=== PATIENT | female | born 1955 | race Caucasian/White ===

== ENCOUNTER 2021-05-28 11:43 | Emergency (ER) | payer MEDICARE, MEDICAID ==
[~2021-05-28] VITALS: Ht 154.9 cm; Wt 88.9 kg
[2021-05-28 11:56] VITALS: BP 144/85
== END 2021-05-28 16:10 | disposition left against medical advice (07) ==
LOC: ER 11:44
DX: R22.40 Localized swelling, mass and lump, unspecified lower limb (principal); Z53.21 Procedure and treatment not carried out due to patient leaving prior to being seen by health care provider

== ENCOUNTER 2022-08-02 08:31 | Day surgery (SDC) | payer MEDICARE, MEDICAID ==
[2022-07-31 12:08] LABS: CLARITY,URINE CLOUDY (Clear); GLUCOSE, URINE NEGATIVE (Neg); KETONES,URINE NEGATIVE (Neg); LEUKOCYTE ESTERASE ,URINE LARGE (Neg); NITRITES, URINE POSITIVE (Neg); OCCULT BLOOD,URINE TRACE-INTACT (Neg); PH,URINE 7.5 (4.8-8.0); PROTEIN,URINE NEGATIVE (Neg); UROBILINOGEN,URINE 0.2 E.U/dL (0.2-1.0)
[2022-07-31 12:12] LABS: UA COLLECTION TYPE CLN CATCH MIDSTREAM
[2022-07-31 12:13] LABS: COLOR,URINE STRAW (Yellow)
[2022-07-31 12:14] LABS: BASOPHILS # (AUTO) 0.1 X10'3 (0-0.2); BASOPHILS % (AUTO) 1.1 % (0-1); EOSINOPHILS # (AUTO) 0.2 X10'3 (0-0.9); LYMPHOCYTES # (AUTO) 1.2 X10'3 (1.1-4.8); MEAN CORPUSCULAR VOLUME 97.1 FL (78-98); MEAN PLATELET VOLUME 8.5 FL (7.4-10.4); MONOCYTES # (AUTO) 0.5 X10'3 (0-0.9); MONOCYTES % (AUTO) 10.4 % (2-12); NEUTROPHILS # (AUTO) 2.9 X10'3 (1.8-7.7); NEUTROPHILS % (AUTO) 59.5 % (42-75); PRE OP HEMATOCRIT 37.7 % (35.0-45.0); PRE OP HEMOGLOBIN 12.8 g/dL (12.0-16.0); PRE OP PLATELET COUNT 247 X10'3 (140-440); RED BLOOD COUNT 3.89 X10'6 (4.20-5.60); SQUAMOUS EPITHELIAL CELL,UR FEW /LPF (FEW); WBC CLUMPS,URINE MODERATE /HPF (NEGATIVE)
[2022-07-31 12:15] LABS: BACTERIA,URINE 1+ /HPF (Neg); RBC,URINE 0-2 /HPF (0-2)
[2022-07-31 12:25] LABS: ALBUMIN 4.1 G/DL (3.4-5.0); ALBUMIN/GLOBULIN RATIO 1.1 (1.1-1.5); ALKALINE PHOSPHATASE 113 IU/L (46-116); BLOOD UREA NITROGEN 13 MG/DL (7-18); BUN/CREATININE RATIO 9.2 (6.6-38.0); CALCIUM 8.9 MG/DL (8.5-10.1); CHLORIDE 102 MMOL/L (99-107); CREATININE 1.41 MG/DL (0.40-0.90); PRE OP ALT 21 U/L (30-65); PRE OP ANION GAP 9 (8-16); PRE OP AST 21 U/L (10-37); PRE OP BILIRUB, TOTAL 0.4 MG/DL (0.0-1.0); PRE OP GLUCOSE 82 MG/DL (70-104); PRE OP POTASSIUM 3.4 MMOL/L (3.4-5.1); PRE OP SODIUM 141 MMOL/L (135-145); TOTAL CARBON DIOXIDE 30.2 MMOL/L (24-32); TOTAL PROTEIN 7.9 G/DL (6.4-8.2); eGFR 37 ML/MIN
[~2022-08-02] VITALS: Ht 154.9 cm; Wt 77.1 kg
[2022-08-02] VITALS (9 sets, daily range): BP systolic 128–148; BP diastolic 75–88
[~2022-08-02 08:31] MED LIST: CART1TAB4 PO; DULO60CA65 PO; LEVO137T2 PO; MELO-102 PO; MULT-1074 PO; PANT20TA18 PO; ceFAZolin inj. 2,000 MG in dextrose 5%-water 100 ML IV ONE; famotidine 20mg tablet PO ONE; ringers solution, lacted 1,000 ML IV SCH
[2022-08-02] MEDS ORDERED: ondansetron/PF 4mg/2ml inj IV PRN ×2 (12:00→18:00)
[2022-08-02] MEDS ORDERED: meperidine/PF 25mg/ml syringe IV PRN ×3 (12:00)
[2022-08-02] MEDS ORDERED: morphine 4 MG/ML inj SYRINge IV PRN (12:00)
[2022-08-02] MEDS ORDERED: proCHLORperazine 10 MG/2 ml inj IV PRN (12:00)
[2022-08-02] MEDS ORDERED: morphine 2 MG/ML inj. syringe IV PRN (12:00)
[2022-08-02] MEDS ORDERED: ringers solution, lacted 1,000 ML IV SCH (12:00)
[2022-08-02] MEDS ORDERED: MIDAZolam 1 MG/ML 5ML VIAL ONE (12:41)
[2022-08-02] MEDS ORDERED: BUPIVAcaine/PF 2.5 mg/ml (0.25%) 30ml vial ONE (12:58)
[2022-08-02] MEDS ORDERED: bacitracin 15gm ointment TP ONE (12:58)
[2022-08-02] MEDS ORDERED: ketorolac trometh. 30mg/ml inj. ONE (13:17)
[2022-08-02] MEDS ORDERED: sevoflurane 250ml liquid IH ONE (13:17)
[2022-08-02] MEDS ORDERED: dexamethasone sod phosphate 10mg/ml inj ONE (13:17)
[2022-08-02] MEDS ORDERED: fentaNYL /PF 50mcg/ml 5ml ampule ONE (13:19)
[2022-08-02] MEDS ORDERED: propofol inj 20 ML IV ONE (13:19)
[2022-08-02] MEDS ORDERED: BUPIVAcaine/PF 7.5mg/ml (0.75%) 10ml vial ONE ×2 (13:59→14:07)
[2022-08-02] MEDS ORDERED: ondansetron/PF 4mg/2ml inj ONE (14:50)
[2022-08-02] MEDS ORDERED: ROPIVAcaine 0.5% (5mg/ml) 30ml vial ONE (14:50)
[2022-08-02] MEDS ORDERED: 0.9 % SODIUM CHLORIDE 10 ML VIAL ONE (14:50)
[2022-08-02] MEDS ORDERED: LIDOcaine 1%/PF 5ML 10 MG/ML VIAL ONE (14:51)
[2022-08-02] MEDS ORDERED: ROPIVAcaine 0.2%/PF PUMP/bolus 545 ML POPLITEAL SCH (15:05)
[2022-08-02] MEDS ORDERED: ROPIVAcaine 0.2% (10 MG/5 ML) BOLUS INJECTION POPLITEAL PRN (15:05)
[2022-08-02] MEDS ORDERED: morphine 4 MG/ML inj SYRINge ONE (15:53)
[2022-08-02] MEDS ORDERED: acetaminophen 1,000mg/100ml IV 100 ML IV ONE (15:55)
[2022-08-02] MEDS ORDERED: vancomycin 1,000mg inj ONE (17:13)
[2022-08-02] MEDS ORDERED: hydrALAZINE 20mg/ml inj. IV ONE (17:52)
[2022-08-02] MEDS ORDERED: acetaminophen 325mg tablet PO PRN (18:00)
[2022-08-02] MEDS ORDERED: magnesium hydroxide 30ml (MOM) UD suspension PO PRN (18:00)
[2022-08-02] MEDS ORDERED: HYDROcodone/acetaminophen 10/325mg tab PO PRN (18:00)
[2022-08-02] MEDS ORDERED: HYDROmorphone inj. 0.5 MG/0.5 ML DISP.SYRIN IV PRN (18:00)
[2022-08-02] MEDS ORDERED: naloxone 0.4 mg/ml inj IV PRN (18:00)
[2022-08-02] MEDS ORDERED: diphenhydrAMINE 25mg capsule PO PRN ×2 (18:00)
[2022-08-02] MEDS ORDERED: bisacodyl 10mg suppository rectal RC PRN (18:00)
--- NOTE | 2022-08-02 18:12 | NUR ---
Received from OR via [facility] , accompanied by Anesthesiologist LIZZETTE and report given by Anesthesiolgist. PATIENT WITH 20GPIV IN LEFT UE RUNNING LR AT 100. PATIENT WITH SPLINT TO RIGHT LE THAT IS CDI. TOES EXPOSED AND HAS + CAP REFILL TO TOES. PWD. + CSM. NO DRAINAGE PRESENT. DENIES PAIN AT THIS TIME AND VSS. Addendum: 08/02/22 at 1823 by Chauncey Samuels RN, RN Amended: Links added.
--- NOTE | 2022-08-02 20:45 | NUR ---
Dr florentino called for patient update. Patients family calling doctor and hospital for D/C. Patient vital signs WNL, 94, 16, 96%, 128/79. patient complains of lower back pain due to bed. Pt D/C to home. Son Jeremy to slate picker.
[2022-08-02] MEDS ORDERED: sennosides 8.6mg tablet PO SCH (21:00)
[2022-08-03] MEDS ORDERED: ceFAZolin/D5W- 1GM premix 50 ML IV SCH
[2022-08-03] MEDS ORDERED: levoTHYROXINE 25mcg tablet PO SCH (07:00)
[2022-08-03] MEDS ORDERED: levoTHYROXINE 125mcg tablet PO SCH (07:00)
[2022-08-03] MEDS ORDERED: CARTILAGE PO SCH (08:00)
[2022-08-03] MEDS ORDERED: duloxetine 30mg CAPSULE.DR PO SCH (08:00)
[2022-08-03] MEDS ORDERED: MELOXICAM 7.5 MG TABLET PO SCH (08:00)
[2022-08-03] MEDS ORDERED: HYALUR PO SCH (08:00)
[2022-08-03] MEDS ORDERED: COLLAGEN PO SCH (08:00)
[2022-08-03] MEDS ORDERED: BOR PO SCH (08:00)
[2022-08-03] MEDS ORDERED: pantoprazole 40mg Tablet.DR PO SCH (08:00)
[2022-08-03] MEDS ORDERED: multivitamins, therapeutics tablet PO SCH (08:00)
== END 2022-08-02 21:33 | disposition home or self-care (01) ==
LOC: PAS 08:31 → ORTHO 4S 18:16 → PAS 21:33
PROVIDERS: ATTEND Podiatrist Foot & Ankle Surgery
DX: M14.671 Charcot's joint, right ankle and foot (principal); M14.672 Charcot's joint, left ankle and foot; G89.18 Other acute postprocedural pain; F32.9 Major depressive disorder, single episode, unspecified; M19.90 Unspecified osteoarthritis, unspecified site; E78.5 Hyperlipidemia, unspecified; Z90.710 Acquired absence of both cervix and uterus; Z79.899 Other long term (current) drug therapy; Z88.8 Allergy status to other drugs, medicaments and biological substances; Z98.890 Other specified postprocedural states; Z96.651 Presence of right artificial knee joint
CPT/HCPCS: 27687; 28725; 28737; 28740; 36415; 64447; 64450; 73620; 76942; 80053; 81001; 82948; 85025; 87088; 87811; 93005; A6223; C1713; J0131; J0360; J0690; J1100; J1885; J2175; J2250; J2270; J2405; J2704; J2795; J3010; J3370; J3490; J7030; J7040; J7060; J7120; Z7506; Z7508; Z7512; 76000; A4618; A6253; A6449; A7000; G0378